=== PATIENT | male | born 2000 | race Caucasian/White ===

== ENCOUNTER 2019-06-25 01:03 | Emergency (ER) | payer OTHER ==
[~2019-06-25] VITALS: Ht 180.3 cm; Wt 95.5 kg
[2019-06-25] MEDS ORDERED: LIDOCAINE W/EPINEPHRINE 1% 20ML VIAL SC ONE (01:30)
[2019-06-25 02:15] VITALS: BP 134/73
== END 2019-06-25 02:48 | disposition home or self-care (01) ==
LOC: M ED 01:03
DX: S51.811A Laceration without foreign body of right forearm, initial encounter (principal); S51.812A Laceration without foreign body of left forearm, initial encounter; W26.8XXA Contact with other sharp object(s), not elsewhere classified, initial encounter; Y92.89 Other specified places as the place of occurrence of the external cause

== ENCOUNTER 2022-05-25 00:03 | Emergency (ER) | payer OTHER ==
[~2022-05-25] VITALS: Ht 180.3 cm; Wt 95.5 kg
[2022-05-25 00:07] VITALS: BP 140/78
== END 2022-05-25 00:46 | disposition left against medical advice (07) ==
LOC: M ED 00:03 → EDBD 00:03 → M ED 00:46
DX: R26.9 Unspecified abnormalities of gait and mobility (principal); Z53.21 Procedure and treatment not carried out due to patient leaving prior to being seen by health care provider

== ENCOUNTER → 2023-05-08 | Outpatient (CLI) | payer OTHER | LOC: M OUTALCOH 07:30 | PROVIDERS: ATTEND Psychiatry & Neurology Psychiatry | DX: Z03.89 Encounter for observation for other suspected diseases and conditions ruled out (principal) ==

== ENCOUNTER → 2024-03-24 | Outpatient (CLI) | payer OTHER | LOC: M SLEEP 20:00 | PROVIDERS: ATTEND Nurse Practitioner Family | DX: G47.8 Other sleep disorders (principal) ==